=== PATIENT | male | born 1995 | race Hispanic/Latino ===

== ENCOUNTER 2017-08-22 07:35 | Day surgery (SDC) | payer BC, SELFPAY ==
[~2017-08-22 07:35] MED LIST: CEFAZOLIN/SWI 2gm 2 GM/20 ML SYR IV SCH
[2017-08-22] MEDS ORDERED: Ringers Lactate 1,000 ML IV ONE ×2 (07:41→10:53)
[2017-08-22] MEDS ORDERED: BUPIVACA 0.25%/EPI 0.0005%/PF 30 ML VIAL ONE (07:56)
[2017-08-22] MEDS ORDERED: LIDOCAINE 2% MPF 5 ML VIAL ONE (08:13)
[2017-08-22] MEDS ORDERED: MIDAZOLAM HCL 2 MG/2 ML INJ ONE (08:13)
[2017-08-22] MEDS ORDERED: PROPOFOL 200 MG/20 ML VIAL IV ONE (08:13)
[2017-08-22] MEDS ORDERED: FENTANYL CITR 100 MCG/2 ML ONE ×2 (08:14→09:04)
[2017-08-22] MEDS ORDERED: ONDANSETRON 4 MG/2 ML VIAL ONE ×2 (08:14→10:26)
[2017-08-22] MEDS ORDERED: ROCURONIUM 50 MG/5 ML VIAL IV ONE ×2 (08:14→08:46)
--- NOTE | 2017-08-22 09:41 | P.OP ---
Preoperative diagnosis: Cholecystitis Postoperative diagnosis: Cholecystitis Primary procedure: Laparoscopic Cholecystectomy Anesthesia: GETA + Local Estimated blood loss: <20cc Specimen: Gallbladder Findings: Bleeding from epigastric port requiring cauterization Complications: None Transferred to: Recovery Room Condition: Good
[2017-08-22] MEDS ORDERED: GLYCOPYRROLATE 0.2 MG/ML SYR ONE (09:45)
[2017-08-22] MEDS: MEPERIDINE HCL 50 MG/ML AMP ONE ×2 (10:25→10:43)
[2017-08-22] MEDS ORDERED: HYDROCODONE/APAP 5/325 MG TAB ONE (11:54)
--- NOTE | 2017-08-22 21:04 | OP ---
Date of Procedure: 08/22/2017 Surgeon: Coelman Naranjo MD, Preoperative Diagnosis: Cholecystitis. Postoperative Diagnosis: Cholecystitis. Procedure Performed: Laparoscopic cholecystectomy. Anesthesia: General endotracheal plus local with 0.25% Marcaine. Estimated Blood Loss: Less than 20 cc. Specimen: Gallbladder. Findings: Bleeding from epigastric port requiring cauterization. Complication: None. Disposition: Transferred to recovery room in good condition. Procedure In Detail: After informed consent was obtained, the patient was brought to the operating r oom and prepped and draped in the usual sterile fashion. After adequate anesthesia was achieved, a s upraumbilical incision was made after appropriately anesthetizing the skin and sharp incising. A 5-m m trocar was introduced into the abdomen without evidence of complication. Insufflation was obtained to 15 mmHg at this time. No injury to vital structures was appreciated at this time. Additional tr ocar chosen in the epigastric region. This was similarly anesthetized and sharply incised. A 5-mm t rocar was introduced into the abdomen without evidence of complication. Two additional trocar sites were chosen, both in the right upper quadrant. These were both similarly anesthetized and sharply in cised. A 5-mm trocar was introduced into the abdomen without evidence of complication. Total of 4 p orts were placed at this time. The umbilical trocar was then up-sized to a 12 mm under direct visual ization without evidence of complication. The patient was then positioned in the gallbladder positio n that is head up right-side up position. There was some bleeding from the epigastric port; therefor e, the port was removed and fulguration was performed with electrocautery and he had good hemostasis at this time. The port was then reintroduced under direct visualization without evidence of complica tion. I then placed ratchet graspers to grasp the gallbladder fundus and placed towards the patient' s right shoulder. Additional graspers used to distract the gallbladder in the Saman's pouch later ally and dissection continued down in the Saman's pouch to expose only 2 structures entering the g allbladder. These identified as the cystic duct and cystic artery. The critical view of safety was obtained for anterior and lateral directions. There was significant scarring over this area consiste nt with the patient's history of longstanding cholecystitis. After this was completely encircled and the critical view of safety was ensured once again from the anterior and lateral directions, 2 titan ium clips were placed on the proximal side of both cystic duct and cystic artery and singly on the di stal aspect of the cystic duct and cystic artery and then the Endo Laura were used to ligate these 2 structures. The electrocautery was then used to take the gallbladder off the hepatic fossa with no bleeding. No additional hemostatic maneuvers were required. The gallbladder placed in EndoCatch bag and removed through the umbilical trocar. Reinflation was obtained at this time. The area was copi ously irrigated multiple times until completely clear and the patient was positioned in neutral posit ion, copiously irrigated one last time and suctioned dry. The 12 mm trocar was then removed and the trocar site was closed using a Steve-Christopher suture passer with 0 Vicryl interrupted fashion with g ood approximation of tissues. The abdomen was completely desufflated under direct visualization with out evidence of complication. All trocars were then removed, copiously irrigated, and closed with a 4-0 Monocryl in a running fashion. Dermabond placed over top. The patient tolerated the procedure w ell without evidence of complication and transferred to PACU in good condition. All counts were obi ect at the end of the case. HEAVEN/RAJENDRA Voice ID: [id number] Report ID: [id number]
== END 2017-08-22 12:43 | disposition home or self-care (01) ==
LOC: OR 07:35
PROVIDERS: ATTEND Surgery
PROC: 0FT44ZZ Resection of Gallbladder, Percutaneous Endoscopic Approach (ICD-10-PCS; principal; 2017-08-22 08:30)
DX: K80.10 Calculus of gallbladder with chronic cholecystitis without obstruction (principal); Z87.891 Personal history of nicotine dependence
CPT/HCPCS: 88304; J0690; J2175; J2250; J2405; J3010